=== PATIENT | female | born 1990 | race Two or more races ===

== ENCOUNTER 2018-04-25 10:57 | Emergency (ER) | payer MEDICAID, OTHER ==
[~2018-04-25] VITALS: Ht 154.9 cm; Wt 78.9 kg
[2018-04-25 11:50] LABS: Basophils # (auto) 0 uL; Basophils % (auto) 0.3 % (0.0-2.0); Eosinophils # (auto) 0 uL; Eosinophils % (auto) 0.2 % (0.0-7.0); Hematocrit 38.4 % (36.0-46.0); Hemoglobin 13.5 g/dL (12.2-16.2); Lymphocytes # (auto) 1.4 uL; Lymphocytes % (auto) 14.5 % (10.0-50.0); Mean Corpuscular Hemoglobin 32.1 pg (28.0-32.0); Mean Corpuscular Hgb Conc. 35.2 g/dL (32.0-36.0); Mean Corpuscular Volume 91.2 fL (80.0-100.0); Monocytes # (auto) 0.3 uL; Monocytes % (auto) 3.5 % (0.0-12.0); Neutrophils # (auto) 7.7 uL; Neutrophils % (auto) 81.5 % (37.0-80.0); Platelet Count (auto) 246 10^3/uL (140-450); Red Blood Cells 4.21 10^6/uL (4.0-5.20); White Blood Cell 9.4 10^3/uL (4.4-10.8)
[2018-04-25 13:20] VITALS: BP 115/58
[2018-04-25 13:36] LABS: Urine Bacteria FEW /hpf (None Seen); Urine Blood Negative /uL (Negative); Urine Mucus FEW (None Seen); Urine Specific Gravity 1.011 (1.001-1.035); Urine WBC 2 /hpf (0 - 5)
== END 2018-04-25 13:23 | disposition home or self-care (01) ==
LOC: ER 11:00
DX: O23.31 Infections of other parts of urinary tract in pregnancy, first trimester (principal); Z3A.13 13 weeks gestation of pregnancy
CPT/HCPCS: 36415; 76801; 81001; 84702; 85025

== ENCOUNTER 2018-05-07 00:17 | Observation (INO) | payer MEDICAID ==
[~2018-05-07] VITALS: Ht 154.9 cm; Wt 79.4 kg
[2018-05-07 02:50] LABS: Basophils # (auto) 0 uL; Basophils % (auto) 0.3 % (0.0-2.0); Eosinophils # (auto) 0 uL; Eosinophils % (auto) 0.2 % (0.0-7.0); Hematocrit 34.8 % (36.0-46.0); Lymphocytes # (auto) 1.6 uL; Lymphocytes % (auto) 13.8 % (10.0-50.0); Mean Corpuscular Hemoglobin 31.2 pg (28.0-32.0); Mean Corpuscular Hgb Conc. 34.4 g/dL (32.0-36.0); Mean Corpuscular Volume 90.8 fL (80.0-100.0); Monocytes # (auto) 0.6 uL; Monocytes % (auto) 4.7 % (0.0-12.0); Neutrophils # (auto) 9.5 uL; Platelet Count (auto) 241 10^3/uL (140-450); Red Blood Cells 3.83 10^6/uL (4.0-5.20); Red Cell Distribution Width 13.5 % (11.8-14.3); White Blood Cell 11.7 10^3/uL (4.4-10.8)
[2018-05-07 03:08] LABS: Alanine Aminotransferase 15 U/L (13-56); Albumin 2.9 g/dL (3.4-5.0); Amylase 52 U/L (25-115); Anion Gap 8 (5-15); Aspartate Aminotransferase 11 U/L (15-37); BUN/Creatinine Ratio 15.5; Blood Urea Nitrogen 9 mg/dL (7-18); Calcium 7.9 mg/dL (8.5-10.1); Carbon Dioxide 23 mmol/L (21-32); Chloride 108 mmol/L (98-107); GFR African American 160 mL/min; GFR Non-African American 133 mL/min; Glucose 92 mg/dL (74-106); Lipase 95 U/L (73-393); Potassium 3.9 mmol/L (3.5-5.1); Sodium 139 mmol/L (136-145)
[2018-05-07 03:13] LABS: Alkaline Phosphatase 72 U/L (45-117); Bilirubin, Total 0.2 mg/dL (0.2-1.0); Total Protein 6.8 g/dL (6.4-8.2)
[2018-05-07 04:44] VITALS: BP 110/67
== END 2018-05-07 04:31 | disposition home or self-care (01) | DRG 251 ==
LOC: EDBD 00:17 → ER 00:25 → OVERFLOW 00:26 → ER 04:31
PROVIDERS: ADMIT Emergency Medicine; ATTEND Emergency Medicine
DX: R10.9 Unspecified abdominal pain (principal); F41.9 Anxiety disorder, unspecified
CPT/HCPCS: 36415; 80053; 82150; 83690; 84484; 85025; 99285; G0378

== ENCOUNTER 2018-09-08 19:14 | Observation (INO) | payer OTHER | END 2018-09-08 20:27 | disposition home or self-care (01) | DRG 833 | LOC: MERGE 19:14 → LDRP 19:14 | PROVIDERS: ADMIT Specialist; ATTEND Specialist | DX: O26.893 Other specified pregnancy related conditions, third trimester (principal); M54.5 Low back pain; R10.9 Unspecified abdominal pain; R00.0 Tachycardia, unspecified; R42 Dizziness and giddiness; Z3A.32 32 weeks gestation of pregnancy | CPT/HCPCS: 59025; 81002; G0378 ==

== ENCOUNTER 2018-10-29 13:08 | Observation (INO) | payer MEDICAID ==
[2018-10-29] MEDS ORDERED: PREN-96 PO (13:28)
== END 2018-10-29 14:35 | disposition home or self-care (01) | DRG 566 ==
LOC: LDRP 13:08
PROVIDERS: ADMIT Specialist; ATTEND Specialist
DX: O48.0 Post-term pregnancy (principal); O26.893 Other specified pregnancy related conditions, third trimester; M54.5 Low back pain; R42 Dizziness and giddiness; R10.9 Unspecified abdominal pain; R20.0 Anesthesia of skin; Z3A.40 40 weeks gestation of pregnancy
CPT/HCPCS: 59025; 76818; 81002; G0378

== ENCOUNTER 2018-10-30 10:10 | Inpatient (IN) | payer MEDICAID | END 2018-11-01 11:45 | disposition home or self-care (01) | LOC: LDRP 10:10 | PROC: 10D07Z6 Extraction of Products of Conception, Vacuum, Via Natural or Artificial Opening (ICD-10-PCS; principal; ~2018-10-30) | DX: O80 Encounter for full-term uncomplicated delivery (principal); O69.1XX0 Labor and delivery complicated by cord around neck, with compression, not applicable or unspecified; Z37.0 Single live birth; Z3A.40 40 weeks gestation of pregnancy ==

== ENCOUNTER 2020-02-01 21:30 | Observation (INO) | payer MEDICAID ==
[~2020-02-01] VITALS: Ht 154.9 cm; Wt 77.6 kg
[~2020-02-01 21:30] MED LIST: PREN-96 PO
--- NOTE | 2020-02-02 00:42 | NUR ---
Tele psych consult taking place.
--- NOTE | 2020-02-02 01:00 | NUR ---
Aylin Farfan CNM called, informed of tele psych consult results and recommendation for 5150 hold pending psychiatric placement due to moderate suicide risk including danger to self and others. Aylin Farfan CNM verbalizes understanding and orders observation in accordance with hospital policy pending placement, VS Q4hrs, and 20 min external monitoring strip QShift. Orders will be followed.
--- NOTE | 2020-02-02 01:40 | NUR ---
Call placed to head housekeeper: Kevin Ignacio notified of pt on unit with recommendation from telepsych phsyician for 5150 hold and involuntary psychiatric placement. Kevin states that there are no beds in the ER at this time, but that the pt will need to be moved there before he psychiatric care placement process can begin. The pt is to be placed in room 7 near he nurse's station with Radha morales as a sitter in the room. This RN or Ronny Cunningham RN will write the 5150 hold and the pt will be observed on our unit pending transfer to the ER.
--- NOTE | 2020-02-02 01:45 | NUR ---
Patient educated on POC and verbalizes understanding.
--- NOTE | 2020-02-02 01:55 | NUR ---
Room safety checklist completed. Patient ambulates to LDRP 7A with steady gait accompanied by RN. Patient positions self in bed and able to make needs known, sitter at bedside.
--- NOTE | 2020-02-02 03:00 | NUR ---
Patient resting comfortably in bed with lights off and eyes closed.
[2020-02-02 03:04] VITALS: BP 112/67
--- NOTE | 2020-02-02 03:05 | NUR ---
Vital signs reviewed.
--- NOTE | 2020-02-02 03:30 | NUR ---
Patient resting comfortably in bed with lights off and eyes closed.
--- NOTE | 2020-02-02 04:00 | NUR ---
Patient resting comfortably in bed with lights off and eyes closed.
--- NOTE | 2020-02-02 04:30 | NUR ---
Patient resting comfortably in bed with lights off and eyes closed.
--- NOTE | 2020-02-02 05:00 | NUR ---
Patient resting comfortably in bed with lights off and eyes closed.
--- NOTE | 2020-02-02 05:30 | NUR ---
Patient resting comfortably in bed with lights off and eyes closed.
--- NOTE | 2020-02-02 05:59 | NUR ---
Patient resting comfortably in bed with lights off and eyes closed.
--- NOTE | 2020-02-02 06:15 | NUR ---
REPORT RECEIVED FROM Ronny CARLTON RN. TOOK OVER MONITORING PT FROM DIPAK CANA[place]. PT RESTING COMFORTABLY WITH LIGHTS OFF AND EYES CLOSED. Signed: 02/02/20 at 1048 by DIPAK OLEARY SN <Co-Signature Required> Co-Signed: 02/02/20 at 1048 by Linn Cuenca RN
--- NOTE | 2020-02-02 06:19 | NUR ---
Report given to Linn Cuenca RN.
--- NOTE | 2020-02-02 07:47 | NUR ---
ROOM SAFETY CHECK COMPLETED. PT RESTING COMFORTABLY WITH LIGHTS OFF AND EYES CLOSED. Signed: 02/02/20 at 1056 by DIPAK OLEARY <Co-Signature Required> Co-Signed: 02/02/20 at 1056 by Linn Cuenca RN Addendum: 02/02/20 at 1056 by DIPAK OLEARY Amended: Links added.
[2020-02-02 08:08] VITALS: BP 112/61
--- NOTE | 2020-02-02 08:30 | NUR ---
PT ATE 75% OF BREAKFAST AND TOLERATED WELL. PT IS NOW RESTING COMFORTABLY WITH LIGHTS OFF AND EYES CLOSED. Signed: 02/02/20 at 1104 by DIPAK OLEARY <Co-Signature Required> Co-Signed: 02/02/20 at 1104 by Linn Cuenca RN
--- NOTE | 2020-02-02 10:18 | NUR ---
Called House Shift (Shauna) regarding placement of patient, informed to place social service consult order. Spoke with Polo Coach (Juana) regarding patient placed on 5150 per telepsych recommendation. Currently, PT is in L & D due to ER being full as outpatient. Juana states, placement is to done by ER and will verify first and call back if placement is to be done by ER. Juana called back and stated since patient is not an inpatient all 5150 holds are to be done by the ER. All information regarding placement situation given to Obdulia Ulloa Called ER Charge (Melissa) regarding patient being held on the L & D unit on a 5150 hold per telepsych recommendation due to full census in ER. Melissa informed paperwork fir hold completed and she will come to unit and review paperwork. Shauna called states Dr Humphrey and Melissa will be coming to evaluate and review paperwork.
[2020-02-02 10:45] VITALS: BP 108/58
--- NOTE | 2020-02-02 11:15 | NUR ---
ER Dr Humphrey and ER Virginia Torres at bedside. PT is to remain in L&D due to full census in ER. ER is working on placement for patient. Signed: 02/02/20 at 1214 by DIPAK OLEARY <Co-Signature Required> Co-Signed: 02/02/20 at 1214 by Haylee Peters RN
--- NOTE | 2020-02-02 11:32 | NUR ---
Patient ambulated to bathroom with steady gait. patient able to void and give sample without complications. Patient positions self in bed and able to make needs known, sitter at bedside. Patient sitting comfortably. Signed: 02/02/20 at 1140 by DIPAK OLEARY <Co-Signature Required> Co-Signed: 02/02/20 at 1140 by Linn Cuenca RN
--- NOTE | 2020-02-02 12:40 | NUR ---
Patient ambulated to bathroom with steady gait. patient able to void without complications. Patient positions self in bed and able to make needs known, sitter at bedside. Patient sitting comfortably. Patient ate 75% of lunch Signed: 02/02/20 at 1248 by DIPAK OLEARY <Co-Signature Required> Co-Signed: 02/02/20 at 1248 by Linn Cuenca RN
--- NOTE | 2020-02-02 13:50 | NUR ---
Report received on stable pt. Assumed care.
[2020-02-02 14:52] VITALS: BP 110/66
--- NOTE | 2020-02-02 14:59 | NUR ---
NST performed on pt per orders, pt A&O x 4, denies pain, no signs of distress or discomfort noted.
[2020-02-02 15:13] LABS: Basophils # (auto) 0 10 ^3/uL (0-0.2); Basophils % (auto) 0.3 % (0.0-2.0); Eosinophils # (auto) 0.1 10 ^3/uL (0-0.8); Hematocrit 32.5 % (36.0-46.0); Lymphocytes # (auto) 1.4 10 ^3/uL (0.4-5.4); Lymphocytes % (auto) 16.2 % (10.0-50.0); Mean Corpuscular Hemoglobin 30.3 pg (28.0-32.0); Mean Corpuscular Hgb Conc. 33.8 g/dL (32.0-36.0); Mean Corpuscular Volume 89.5 fL (80.0-100.0); Monocytes # (auto) 0.4 10 ^3/uL (0-1.3); Monocytes % (auto) 5.3 % (0.0-12.0); Neutrophils # (auto) 6.5 10 ^3/uL (1.6-8.6); Neutrophils % (auto) 77.2 % (37.0-80.0); Platelet Count (auto) 258 10^3/uL (140-450); Red Blood Cells 3.63 10^6/uL (4.0-5.20); Red Cell Distribution Width 13.3 % (11.8-14.3); White Blood Cell 8.4 10^3/uL (4.4-10.8)
[2020-02-02 15:39] LABS: Albumin 2.5 g/dL (3.4-5.0); BUN/Creatinine Ratio 15.4; Calcium 8.1 mg/dL (8.5-10.1); Potassium 3.9 mmol/L (3.5-5.1)
[2020-02-02 15:42] LABS: Bilirubin, Total 0.3 mg/dL (0.2-1.0); Total Protein 6.5 g/dL (6.4-8.2)
[2020-02-02 15:45] LABS: Urine Bacteria NONE SEEN /hpf (None Seen); Urine Blood Negative /uL (Negative); Urine Mucus FEW (None Seen); Urine Specific Gravity 1.028 (1.001-1.035); Urine WBC 1 /hpf (0 - 5)
[2020-02-02 15:47] LABS: Alcohol, Urine < 3.0 mg/dL (0-10); Amphetamine Screen, Urine NEGATIVE (NEGATIVE); Barbiturate Scree,Urine NEGATIVE (NEGATIVE); Benzodiazephine Screen, Urine NEGATIVE (NEGATIVE); Cannabinoid Screen, Urine NEGATIVE (NEGATIVE); Cocaine Screen, Urine NEGATIVE (NEGATIVE); Opiate Scree,Urine NEGATIVE (NEGATIVE); Phencyclidine Screen, Urine NEGATIVE (NEGATIVE)
--- NOTE | 2020-02-02 17:59 | NUR ---
Rounds completed, pt A&O x 4, denies pain or feeling any UC's. Pt stable, no signs of distress or discomfort noted.
--- NOTE | 2020-02-02 18:15 | NUR ---
Report given to Ronny MAYA RN on stable pt. Relinquished care
--- NOTE | 2020-02-02 18:15 | NUR ---
Report received from Radha Arndt RN, assumed care of patient. Addendum: 02/03/20 at 0051 by JOSÉ CUNNINGHAM RN Noted charted incorrectly. Ronny Cunningham RN received report from Radha Arndt RN and assumed care of patient.
--- NOTE | 2020-02-02 18:30 | NUR ---
Opening Shift Note Assumed care of patient, awake and alert. No S/S of distress/SOB or pain. Instructed on POC and to call for assist PRN, will continue to monitor for changes. Bed locked and in lowest positioned, sitter at bedside and patient able to make needs known.
[2020-02-02 18:49] VITALS: BP 110/66
--- NOTE | 2020-02-02 18:56 | NUR ---
20 min EFM strip obtained, FHR 140s, appropriate for gest. age.
--- NOTE | 2020-02-02 19:00 | NUR ---
Patient OOB to bathroom, returned to bed after void.
--- NOTE | 2020-02-02 20:31 | NUR ---
Patient provided toothbrush, toothpaste, washcloths and clean underwear.
--- NOTE | 2020-02-02 21:10 | NUR ---
Patient Care: Patient ambulated to bathroom with steady gait. Patient able to void without complications. Patient positions self in bed and able to make needs known, sitter at bedside. Patient provided with sandwich and juice per request.
[2020-02-02 22:30] VITALS: BP 120/64
--- NOTE | 2020-02-02 22:30 | NUR ---
Rounding: Patient resting comfortably in bed with eyes closed and lights off.
--- NOTE | 2020-02-03 00:45 | NUR ---
Rounding: Patient resting comfortably in bed with eyes closed and lights off.
[2020-02-03 03:13] VITALS: BP 119/62
--- NOTE | 2020-02-03 03:31 | NUR ---
Rounding: Patient resting comfortably in bed with eyes closed and lights off.
--- NOTE | 2020-02-03 04:52 | NUR ---
Rounding: Patient resting comfortably in bed, requesting crackers.
--- NOTE | 2020-02-03 06:17 | NUR ---
Report given to Linn Cuenca RN, relinquished care of patient.
--- NOTE | 2020-02-03 06:30 | NUR ---
Opening Shift Note Assumed care of patient, resting comfortably in bed with lights off and eyes closed. No S/S of distress/SOB. Bed locked and in lowest positioned, sitter at bedside, will continue to monitor for changes. Signed: 02/03/20 at 900 by DIPAK TABARES SN <Co-Signature Required> Co-Signed: 02/03/20 at 900 by Linn Cuenca RN
[2020-02-03 08:30] VITALS: BP 100/50
--- NOTE | 2020-02-03 08:45 | NUR ---
Pt ambulated to bathroom with steady gait. Pt able to void without complications. Pt positions self in bed and able to make needs known, sitter at bedside. Signed: 02/03/20 at 934 by DIPAK TABARES <Co-Signature Required> Co-Signed: 02/03/20 at 35 by Linn Cuenca RN
--- NOTE | 2020-02-03 09:15 | NUR ---
Pt ate 75% of breakfast and tolerated well. Pt is now resting comfortably with lights off and eyes closed.
--- NOTE | 2020-02-03 10:35 | NUR ---
Call from ER that tech will be picking up pt and taking her to ER heart tones via doppler 130. [employer] hydrology technician transported pt with all belongings to ER. No distress noted at this time. Pt informed on changes, verbalized understanding.
== END 2020-02-03 10:35 | disposition short-term general hospital (02) | DRG 566 ==
LOC: LDRP 21:30
PROVIDERS: ADMIT Specialist; ATTEND Specialist
DX: O26.892 Other specified pregnancy related conditions, second trimester (principal); R45.851 Suicidal ideations; R42 Dizziness and giddiness; R06.02 Shortness of breath; R10.9 Unspecified abdominal pain; Z3A.25 25 weeks gestation of pregnancy
CPT/HCPCS: 36415; 59025; 80053; 80307; 81001; 81002; 85025; 94760; G0378

== ENCOUNTER 2020-02-02 14:12 | Emergency (ER) | payer MEDICAID ==
[~2020-02-02] VITALS: Ht 154.9 cm; Wt 78.0 kg
--- NOTE | 2020-02-04 02:18 | NUR ---
FHT: FHR baseline 140 with moderate variability. No decels noted. No UCs noted. Patient denies any pain, cramping, or UCs at this time.
--- NOTE | 2020-02-04 08:07 | NUR ---
NST COMPLETED. IUP @ 26.1 DENIES LOF, VB, OR UC'S. +FM. REACTIVE NST FHR BASELINE 130, MOD VARIABLILTY, 10X10 ACCELS, NO DECELS. NO UC'S.
[2020-02-05 08:28] VITALS: BP 98/76
--- NOTE | 2020-02-05 11:22 | NUR ---
SPOKE WITH VANIA REYES IN FAST TRACK AND LET HER KNOW I AN IN ROOM WITH PATIENT TO DO NST . PORTABLE MONITOR TAKEN TO FAST TRACK ROOM 103. JOE AND EFM PLACED ON PATIENTS ABD AREA AT 1122 HOUR AND FINISHED AT 1144 HOUR . SPOKE WITH VANIA REYES TO MAKE HER AWARE NST IS DONE AND NOTED HEART RATE AT 140 BPM , APPROPRIATE FOR GESTATIONAL AGE OF 26.2, NO UC'S NOTED, DID A RADIAL PULSE ON PATIENT AND NOTED 80 BPM .
== END 2020-02-05 11:51 | disposition home or self-care (01) ==
LOC: ER 14:12
DX: O99.343 Other mental disorders complicating pregnancy, third trimester (principal); R45.851 Suicidal ideations; F41.9 Anxiety disorder, unspecified; F32.9 Major depressive disorder, single episode, unspecified; Z03.818 Encounter for observation for suspected exposure to other biological agents ruled out; Z3A.00 Weeks of gestation of pregnancy not specified
CPT/HCPCS: 99285; C9803; U0003

== ENCOUNTER 2020-03-23 13:15 | Observation (INO) | payer MEDICAID | END 2020-03-23 14:55 | disposition home or self-care (01) | LOC: LDRP 13:15 | PROVIDERS: ADMIT Obstetrics & Gynecology; ATTEND Obstetrics & Gynecology | DX: O40.3XX0 Polyhydramnios, third trimester, not applicable or unspecified (principal); O62.9 Abnormality of forces of labor, unspecified; Z3A.33 33 weeks gestation of pregnancy; Z91.040 Latex allergy status | CPT/HCPCS: 59025; 76818; 81002; G0378 ==

== ENCOUNTER 2020-03-26 15:19 | Observation (INO) | payer MEDICAID | END 2020-03-26 16:40 | disposition home or self-care (01) | LOC: LDRP 15:19 | PROVIDERS: ADMIT Obstetrics & Gynecology; ATTEND Obstetrics & Gynecology | DX: O40.3XX0 Polyhydramnios, third trimester, not applicable or unspecified (principal); Z3A.33 33 weeks gestation of pregnancy | CPT/HCPCS: 76818; G0378 ==

== ENCOUNTER 2020-03-30 11:20 | Observation (INO) | payer MEDICAID | END 2020-03-30 12:20 | disposition home or self-care (01) | LOC: LDRP 11:20 | PROVIDERS: ADMIT Obstetrics & Gynecology; ATTEND Obstetrics & Gynecology | DX: O40.3XX0 Polyhydramnios, third trimester, not applicable or unspecified (principal); Z3A.34 34 weeks gestation of pregnancy; Z91.040 Latex allergy status | CPT/HCPCS: 59025; 76818; 81002; G0378 ==

== ENCOUNTER 2020-04-02 15:25 | Observation (INO) | payer MEDICAID | END 2020-04-02 17:10 | disposition home or self-care (01) | LOC: LDRP 15:25 | PROVIDERS: ADMIT Obstetrics & Gynecology; ATTEND Obstetrics & Gynecology | DX: O40.3XX0 Polyhydramnios, third trimester, not applicable or unspecified (principal); Z3A.34 34 weeks gestation of pregnancy | CPT/HCPCS: 59025; 76818; 81002; G0378 ==

== ENCOUNTER 2020-04-06 13:32 | Observation (INO) | payer MEDICAID | END 2020-04-06 14:49 | disposition home or self-care (01) | LOC: LDRP 13:32 | PROVIDERS: ADMIT Specialist; ATTEND Specialist | DX: O40.3XX0 Polyhydramnios, third trimester, not applicable or unspecified (principal); O62.9 Abnormality of forces of labor, unspecified; O26.893 Other specified pregnancy related conditions, third trimester; N89.8 Other specified noninflammatory disorders of vagina; Z3A.34 34 weeks gestation of pregnancy | CPT/HCPCS: 59025; 76818; 81002; G0378 ==

== ENCOUNTER 2020-04-09 15:08 | Observation (INO) | payer MEDICAID | END 2020-04-09 16:00 | disposition home or self-care (01) | LOC: LDRP 15:08 | PROVIDERS: ADMIT Specialist; ATTEND Specialist | DX: O26.893 Other specified pregnancy related conditions, third trimester (principal); R35.8 Other polyuria; Z3A.35 35 weeks gestation of pregnancy | CPT/HCPCS: 59025; 76818; 81002; G0378 ==

== ENCOUNTER 2020-04-13 15:17 | Observation (INO) | payer MEDICAID ==
[2020-04-13] MEDS ORDERED: FERR18TA2 PO (16:44)
== END 2020-04-13 17:07 | disposition home or self-care (01) ==
LOC: LDRP 15:17
PROVIDERS: ADMIT Obstetrics & Gynecology; ATTEND Obstetrics & Gynecology
DX: O40.3XX0 Polyhydramnios, third trimester, not applicable or unspecified (principal); Z3A.36 36 weeks gestation of pregnancy
CPT/HCPCS: 59025; 76818; 81002; G0378

== ENCOUNTER 2020-04-16 14:55 | Observation (INO) | payer MEDICAID ==
[~2020-04-16 14:55] MED LIST changes: +FERR18TA2 PO
== END 2020-04-16 16:05 | disposition home or self-care (01) ==
LOC: LDRP 14:55
PROVIDERS: ADMIT Obstetrics & Gynecology; ATTEND Obstetrics & Gynecology
DX: O40.3XX0 Polyhydramnios, third trimester, not applicable or unspecified (principal); Z3A.36 36 weeks gestation of pregnancy
CPT/HCPCS: 59025; 76818; 81002; G0378

== ENCOUNTER 2020-04-20 10:49 | Observation (INO) | payer MEDICAID | END 2020-04-20 11:57 | disposition home or self-care (01) | LOC: LDRP 10:49 | PROVIDERS: ADMIT Obstetrics & Gynecology; ATTEND Obstetrics & Gynecology | DX: O40.3XX0 Polyhydramnios, third trimester, not applicable or unspecified (principal); Z3A.37 37 weeks gestation of pregnancy | CPT/HCPCS: 59025; 76818; 81002; G0378 ==

== ENCOUNTER 2020-04-23 15:00 | Observation (INO) | payer MEDICAID | END 2020-04-23 16:23 | disposition home or self-care (01) | LOC: LDRP 15:00 | PROVIDERS: ADMIT Obstetrics & Gynecology; ATTEND Obstetrics & Gynecology | DX: O40.3XX0 Polyhydramnios, third trimester, not applicable or unspecified (principal); Z3A.37 37 weeks gestation of pregnancy | CPT/HCPCS: 59025; 76818; 81002; G0378 ==

== ENCOUNTER 2020-04-27 15:32 | Observation (INO) | payer MEDICAID | END 2020-04-27 16:33 | disposition home or self-care (01) | LOC: LDRP 15:32 | PROVIDERS: ADMIT Obstetrics & Gynecology; ATTEND Obstetrics & Gynecology | DX: O40.3XX0 Polyhydramnios, third trimester, not applicable or unspecified (principal); Z3A.38 38 weeks gestation of pregnancy | CPT/HCPCS: 59025; 76818; 81002; G0378 ==

== ENCOUNTER 2020-04-30 16:06 | Observation (INO) | payer MEDICAID | END 2020-04-30 16:40 | disposition home or self-care (01) | LOC: LDRP 16:06 | PROVIDERS: ADMIT Specialist; ATTEND Specialist | DX: O40.3XX0 Polyhydramnios, third trimester, not applicable or unspecified (principal); O26.893 Other specified pregnancy related conditions, third trimester; N89.8 Other specified noninflammatory disorders of vagina; Z3A.38 38 weeks gestation of pregnancy | CPT/HCPCS: 59025; 76818; 81002; G0378 ==

== ENCOUNTER 2020-05-02 23:26 | Observation (INO) | payer MEDICAID | END 2020-05-03 01:15 | disposition home or self-care (01) | LOC: LDRP 23:26 | PROVIDERS: ADMIT Specialist; ATTEND Specialist | DX: O62.9 Abnormality of forces of labor, unspecified (principal); O42.92 Full-term premature rupture of membranes, unspecified as to length of time between rupture and onset of labor; Z3A.38 38 weeks gestation of pregnancy | CPT/HCPCS: 59025; 81002; 84112; G0378; Q0114 ==

== ENCOUNTER 2020-05-04 15:07 | Observation (INO) | payer MEDICAID | END 2020-05-04 16:15 | disposition home or self-care (01) | LOC: LDRP 15:07 | PROVIDERS: ADMIT Obstetrics & Gynecology; ATTEND Obstetrics & Gynecology | DX: O40.3XX0 Polyhydramnios, third trimester, not applicable or unspecified (principal); Z3A.39 39 weeks gestation of pregnancy | CPT/HCPCS: 59025; 76818; 81002; G0378 ==

== ENCOUNTER 2020-05-07 15:16 | Observation (INO) | payer MEDICAID | END 2020-05-07 17:37 | disposition home or self-care (01) | LOC: LDRP 15:16 | PROVIDERS: ADMIT Obstetrics & Gynecology; ATTEND Obstetrics & Gynecology | DX: O40.3XX0 Polyhydramnios, third trimester, not applicable or unspecified (principal); Z3A.39 39 weeks gestation of pregnancy | CPT/HCPCS: 59025; 76818; 81002; G0378 ==

== ENCOUNTER 2020-05-11 14:30 | Observation (INO) | payer MEDICAID | END 2020-05-11 15:26 | disposition home or self-care (01) | LOC: UNDOADMOB 14:30 → LDRP 14:30 → UNDODISOB 15:26 | PROVIDERS: ADMIT Specialist; ATTEND Specialist | DX: O40.3XX0 Polyhydramnios, third trimester, not applicable or unspecified (principal); O48.0 Post-term pregnancy; Z3A.40 40 weeks gestation of pregnancy | CPT/HCPCS: 59025; 76818; 81002; G0378 ==

== ENCOUNTER 2020-05-13 20:25 | Observation (INO) | payer MEDICAID | END 2020-05-13 21:43 | disposition home or self-care (01) | LOC: LDRP 20:25 | PROVIDERS: ADMIT Obstetrics & Gynecology; ATTEND Obstetrics & Gynecology | DX: O48.0 Post-term pregnancy (principal); O40.3XX0 Polyhydramnios, third trimester, not applicable or unspecified; O62.9 Abnormality of forces of labor, unspecified; Z3A.40 40 weeks gestation of pregnancy | CPT/HCPCS: 59025; 76818; 81002; G0378 ==

== ENCOUNTER 2020-05-15 12:23 | Observation (INO) | payer MEDICAID | END 2020-05-15 16:16 | disposition home or self-care (01) | LOC: LDRP 12:23 | PROVIDERS: ADMIT Specialist; ATTEND Specialist | DX: O48.0 Post-term pregnancy (principal); O62.9 Abnormality of forces of labor, unspecified; Z3A.40 40 weeks gestation of pregnancy | CPT/HCPCS: 59025; 76818; 81002; 84112; G0378; Q0114 ==

== ENCOUNTER 2020-05-15 18:34 | Inpatient (IN) | payer MEDICAID ==
[~2020-05-15] VITALS: Ht 154.9 cm; Wt 82.1 kg
[2020-05-15] MEDS ORDERED: PHISODERM TOP SOLN 240ML BTL TOP PRN (19:30)
[2020-05-15] MEDS ORDERED: BUTORPHANOL TARTRATE 2 MG/1 ML VIAL IV PRN ×2 (19:30)
[2020-05-15] MEDS ORDERED: WITCH HAZEL-GLYCERIN PAD TOP PRN (19:30)
[2020-05-15] MEDS ORDERED: PROMETHAZINE HCL 25 MG/ML 1ML IM PRN (19:30)
[2020-05-15] MEDS ORDERED: LIDOCAINE 2%HCL (LOCAL ANESTH.) INJ 20ML MDV IJ ONE (19:30)
[2020-05-15] MEDS ORDERED: DERMOPLAST 60ML BOTTLE TOP PRN (19:30)
[2020-05-15] MEDS: LACTATED RINGER'S 1,000 ML IV SCH (19:58)
[2020-05-15] MEDS ORDERED: LACT. RINGERS/OXYTOCIN 20UNITS 1,000 ML IV ONE (20:00)
[2020-05-15] MEDS ORDERED: LACT. RINGERS/OXYTOCIN 20UNITS 1,000 ML IV SCH (20:00)
[2020-05-15] MEDS ORDERED: TERBUTALINE SULFATE 1 MG/ML 1ML VIAL SC ONE (20:00)
[2020-05-15 20:38] LABS: Basophils # (auto) 0 10 ^3/uL (0-0.2); Basophils % (auto) 0.3 % (0.0-2.0); Eosinophils # (auto) 0.1 10 ^3/uL (0-0.8); Eosinophils % (auto) 0.6 % (0.0-7.0); Hematocrit 33.3 % (36.0-46.0); Lymphocytes % (auto) 7.2 % (10.0-50.0); Mean Corpuscular Hemoglobin 27.5 pg (28.0-32.0); Mean Corpuscular Hgb Conc. 32.9 g/dL (32.0-36.0); Mean Corpuscular Volume 83.5 fL (80.0-100.0); Monocytes # (auto) 0.6 10 ^3/uL (0-1.3); Monocytes % (auto) 4.1 % (0.0-12.0); Neutrophils # (auto) 12.7 10 ^3/uL (1.6-8.6); Neutrophils % (auto) 87.8 % (37.0-80.0); Platelet Count (auto) 231 10^3/uL (140-450); Red Blood Cells 3.99 10^6/uL (4.0-5.20); Red Cell Distribution Width 16.1 % (11.8-14.3); White Blood Cell 14.5 10^3/uL (4.4-10.8)
[2020-05-15 20:40] LABS: Urine Bacteria NONE SEEN /hpf (None Seen); Urine Blood Negative /uL (Negative); Urine Mucus FEW (None Seen); Urine Specific Gravity 1.026 (1.001-1.035); Urine WBC 1 /hpf (0 - 5)
[2020-05-15 20:55] LABS: INR 0.98 (0.9-1.15); Partial Thromboplastin Time 30.9 sec (23.0-31.2)
[2020-05-15 21:01] LABS: Albumin 2.7 g/dL (3.4-5.0); Calcium 8.1 mg/dL (8.5-10.1); Potassium 3.5 mmol/L (3.5-5.1)
[2020-05-15 21:03] LABS: Alcohol, Urine < 3.0 mg/dL (0-10); Amphetamine Screen, Urine NEGATIVE (NEGATIVE); Barbiturate Scree,Urine NEGATIVE (NEGATIVE); Benzodiazephine Screen, Urine NEGATIVE (NEGATIVE); Cannabinoid Screen, Urine NEGATIVE (NEGATIVE); Cocaine Screen, Urine NEGATIVE (NEGATIVE); Opiate Scree,Urine NEGATIVE (NEGATIVE); Phencyclidine Screen, Urine NEGATIVE (NEGATIVE)
[2020-05-15 21:04] LABS: BUN/Creatinine Ratio 16.4; Bilirubin, Total 0.3 mg/dL (0.2-1.0); Total Protein 6.9 g/dL (6.4-8.2); Uric Acid 3.4 mg/dL (2.6-6.0)
[2020-05-15] MEDS ORDERED: miSOPROStol 100 mcg TAB ONE (21:09)
[2020-05-15] MEDS ORDERED: METHYLERGONOVINE MALEATE 0.2 MG/ML AMP IM ONE (21:09)
[2020-05-15] MEDS ORDERED: NALOXONE HCL 0.4 MG/ML VIAL IV ONE (22:45)
[2020-05-15] MEDS ORDERED: LIDOCAINE HCL 2 %PF INJ 10ML AMP IJ ONE (22:45)
[2020-05-15] MEDS ORDERED: ePHEDrine SULFATE 50 MG/ML AMP IV ONE (22:45)
[2020-05-15] MEDS ORDERED: fentaNYL CITRATE 100 MCG/2 ML VL IV ONE (22:45)
[2020-05-15] MEDS ORDERED: fentaNYL CITRATE 100 MCG/2 ML VL ONE (22:49)
[2020-05-15] MEDS: ROPIVACAINE HCL 200 ML EPI SCH (23:19)
[2020-05-16] VITALS (25 sets, daily range): BP systolic 101–142; BP diastolic 52–70
[2020-05-16] MEDS: ROPIVACAINE HCL 200 ML EPI SCH (00:50)
[2020-05-16] MEDS ORDERED: fentaNYL CITRATE 100 MCG/2 ML VL IV ONE (01:00)
[2020-05-16] MEDS ORDERED: LIDOCAINE HCL 2 %PF INJ 10ML AMP IJ ONE (01:35)
[2020-05-16] MEDS ORDERED: MORPHINE SULF(PF) 0.5MG/ML 10ML VIAL ONE (01:41)
[2020-05-16] MEDS ORDERED: ceFAZolin 1GM VL ONE (02:06)
[2020-05-16] MEDS ORDERED: oxyTOCIN 10 UNIT/ML 10ML VIAL ONE (02:06)
[2020-05-16] MEDS ORDERED: ACETAMINOPHEN IV 100 ML IV ONE (02:58)
[2020-05-16] MEDS ORDERED: ACETAMINOPHEN IV 1000 MG/100ML (10MG/ML) IV SCH (03:00)
[2020-05-16] MEDS ORDERED: LACT. RINGERS/OXYTOCIN 20UNITS 1,000 ML IV ONE (03:00)
[2020-05-16] MEDS ORDERED: diphenhdrAMINE HCL 50 MG/1 ML VL IV PRN (03:00)
[2020-05-16] MEDS ORDERED: KETOROLAC TROMETH 30 MG/ML 1ML VIAL IV PRN (03:00)
[2020-05-16] MEDS ORDERED: HYDROmorphone HCL 2 MG/ML VL IV PRN ×2 (03:00)
[2020-05-16] MEDS ORDERED: NALOXONE HCL 0.4 MG/ML VIAL IV PRN (03:00)
[2020-05-16] MEDS ORDERED: ONDANSETRON HCL 4 MG/2 ML VIAL IV PRN ×2 (03:00)
[2020-05-16] MEDS ORDERED: ceFAZolin 1GM/50ML 50 ML IV SCH ×2 (03:00→10:30)
[2020-05-16] MEDS ORDERED: GUM (CHEWING) 1 GUM CHEW CHEW ONE (03:00)
[2020-05-16] MEDS: LACTATED RINGER'S 1,000 ML IV SCH ×2 (04:31→14:26)
[2020-05-16 09:09] LABS: Basophils # (auto) 0 10 ^3/uL (0-0.2); Basophils % (auto) 0.1 % (0.0-2.0); Eosinophils # (auto) 0 10 ^3/uL (0-0.8); Hemoglobin 8.1 g/dL (12.2-16.2); Lymphocytes # (auto) 0.8 10 ^3/uL (0.4-5.4); Monocytes # (auto) 0.8 10 ^3/uL (0-1.3); Monocytes % (auto) 3.5 % (0.0-12.0); Neutrophils # (auto) 20.3 10 ^3/uL (1.6-8.6); White Blood Cell 21.9 10^3/uL (4.4-10.8)
[2020-05-16 09:11] LABS: Hematocrit 24.3 % (36.0-46.0); Lymphocytes % (auto) 3.9 % (10.0-50.0); Mean Corpuscular Hemoglobin 28.1 pg (28.0-32.0); Mean Corpuscular Hgb Conc. 33.4 g/dL (32.0-36.0); Mean Corpuscular Volume 84.1 fL (80.0-100.0); Neutrophils % (auto) 92.5 % (37.0-80.0); Platelet Count (auto) 201 10^3/uL (140-450)
[2020-05-16] MEDS: ceFAZolin 1GM/50ML 50 ML IV SCH (22:29)
[2020-05-17] VITALS (7 sets, daily range): BP systolic 100–116; BP diastolic 58–71
[2020-05-17] MEDS: ceFAZolin 1GM/50ML 50 ML IV SCH (05:32)
[2020-05-17 07:01] LABS: Basophils # (auto) 0 10 ^3/uL (0-0.2); Eosinophils # (auto) 0 10 ^3/uL (0-0.8); Eosinophils % (auto) 0.1 % (0.0-7.0); Lymphocytes # (auto) 1.4 10 ^3/uL (0.4-5.4); Monocytes # (auto) 0.4 10 ^3/uL (0-1.3); Neutrophils # (auto) 11.3 10 ^3/uL (1.6-8.6)
[2020-05-17 07:05] LABS: Basophils % (auto) 0.1 % (0.0-2.0); Hematocrit 20.7 % (36.0-46.0); Lymphocytes % (auto) 10.9 % (10.0-50.0); Mean Corpuscular Hemoglobin 28.7 pg (28.0-32.0); Mean Corpuscular Hgb Conc. 33.2 g/dL (32.0-36.0); Mean Corpuscular Volume 86.4 fL (80.0-100.0); Monocytes % (auto) 3.2 % (0.0-12.0); Neutrophils % (auto) 85.7 % (37.0-80.0); Platelet Count (auto) 183 10^3/uL (140-450); Red Blood Cells 2.39 10^6/uL (4.0-5.20); Red Cell Distribution Width 16.3 % (11.8-14.3); White Blood Cell 13.2 10^3/uL (4.4-10.8)
[2020-05-17 07:22] LABS: Hemoglobin 6.9 g/dL (12.2-16.2)
[2020-05-17] MEDS ORDERED: HYDROcodone-ACET 5/325MG TAB PO PRN ×2 (07:45)
[2020-05-17] MEDS ORDERED: SIMETHICONE 80 MG CHEWABLE TABLET PO PRN (07:45)
[2020-05-17] MEDS: DOCUSATE SOD 100 MG CAP PO SCH ×2 (10:29→21:56)
[2020-05-17 20:05] LABS: Basophils # (auto) 0 10 ^3/uL (0-0.2); Basophils % (auto) 0.3 % (0.0-2.0); Eosinophils # (auto) 0.1 10 ^3/uL (0-0.8); Hemoglobin 7.3 g/dL (12.2-16.2); Mean Corpuscular Volume 84.4 fL (80.0-100.0); Monocytes # (auto) 0.4 10 ^3/uL (0-1.3)
[2020-05-17 20:07] LABS: Eosinophils % (auto) 0.5 % (0.0-7.0); Lymphocytes # (auto) 1.6 10 ^3/uL (0.4-5.4); Lymphocytes % (auto) 13.9 % (10.0-50.0); Mean Corpuscular Hemoglobin 27.9 pg (28.0-32.0); Monocytes % (auto) 3.3 % (0.0-12.0); Neutrophils # (auto) 9.2 10 ^3/uL (1.6-8.6); Platelet Count (auto) 225 10^3/uL (140-450); Red Cell Distribution Width 16.3 % (11.8-14.3); White Blood Cell 11.2 10^3/uL (4.4-10.8)
[2020-05-17] MEDS: IBUPROFEN 800 MG TAB PO PRN (21:56)
[2020-05-18] MEDS ORDERED: FERROUS SULFATE 325 MG TAB PO ONE
[2020-05-18 03:03] VITALS: BP 108/58
[2020-05-18 05:08] LABS: RPR Non Reactive (Non Reactive)
[2020-05-18] MEDS: FERROUS SULFATE 325 MG TAB PO SCH ×3 (06:04→22:02)
[2020-05-18 06:36] VITALS: BP 113/68
[2020-05-18 10:40] VITALS: BP 114/63
[2020-05-18] MEDS: DOCUSATE SOD 100 MG CAP PO SCH ×2 (10:58→22:02)
[2020-05-18] MEDS: IBUPROFEN 800 MG TAB PO PRN ×2 (10:58→22:02)
[2020-05-18 15:00] VITALS: BP 105/71
[2020-05-18 19:00] VITALS: BP 121/76
[2020-05-18 22:30] VITALS: BP 126/74
[2020-05-19 03:30] VITALS: BP 113/73
[2020-05-19] MEDS: FERROUS SULFATE 325 MG TAB PO SCH (05:40)
[2020-05-19] MEDS ORDERED: TETANUS-DIPTH-ACEL PERTUSSIS 0.5ML SYR Tdap IM ONE (06:00)
[2020-05-19 07:17] VITALS: BP 103/66
[2020-05-19] MEDS: IBUPROFEN 800 MG TAB PO PRN ×2 (08:57→08:59)
[2020-05-19 09:50] VITALS: BP 114/78
[2020-05-19] MEDS: DOCUSATE SOD 100 MG CAP PO SCH (10:37)
== END 2020-05-19 11:15 | disposition home or self-care (01) | DRG 540 ==
LOC: LDRP 18:34 → UNDOADMOB 18:34 → LDRP 18:50 → OBSVTOIN 18:50 → INTOOBSV 18:50 → LDRP 05-16 17:34
PROVIDERS: ADMIT Obstetrics & Gynecology; ATTEND Obstetrics & Gynecology
PROC: 10D00Z1 Extraction of Products of Conception, Low, Open Approach (ICD-10-PCS; principal; 2020-05-16 01:45)
DX: O36.63X0 Maternal care for excessive fetal growth, third trimester, not applicable or unspecified (principal); O66.5 Attempted application of vacuum extractor and forceps; Z37.0 Single live birth; Z3A.40 40 weeks gestation of pregnancy; Z20.828 Contact with and (suspected) exposure to other viral communicable diseases
CPT/HCPCS: 36415; 59025; 62282; 80053; 80307; 81001; 81002; 84550; 85025; 85610; 85730; 86592; 86850; 86900; 86901; 87426; 90715; 94760; 96360; 96361; 96365; 96372; 96374; G0378; J0131; J0690; J1885; J2590